=== PATIENT | male | born 1955 | race Caucasian/White ===

== ENCOUNTER → 2017-09-05 09:41 | Outpatient (CLI) | payer OTHER, SELFPAY ==
--- NOTE | 2017-09-05 09:44 | ECHOD_ITS ---
Reason For Study: CHEST PAIN Procedure This was a 2D Doppler, Color Flow transthoracic echocardiogram. Exam performed in department. Left Ventricle Normal size and thickness. The estimated ejection fraction is 60 %. Stage 1 diastolic dysfunction. No regional wall motion abnormalities noted. Right Ventricle Normal size and thickness. Normal systolic function. Atria Normal left atrium. Normal right atrium. Normal atrial septum. Mitral Valve The mitral valve is structurally normal. No prolapse or stenosis seen. Tricuspid Valve Normal tricuspid valve. Trivial tricuspid valve insufficiency. Right ventricular systolic pressure estimated to be 17 mmHg. Aortic Valve Trisinus/trileaflet aortic valve. Mild diffuse aortic valve thickening. Pulmonic Valve Normal pulmonic valve. Great Vessels Normal aortic root. Normal arch. Normal inferior vena cava. Inferior vena cava collapse with sniff. Pericardium/Pleural No pericardial effusion. MMode/2D Measurements & Calculations LVIDd: 4.3 cm IVSd: 0.80 cm Ao root diam: 3.8 cm LVIDs: 2.6 cm LVPWd: 0.85 cm LA dimension: 2.7 cm RVDd: 3.1 cm FS: 39.6 % LAV(MOD-bp): 52.4 ml EDV(MOD-sp4): 115.0 ml EDV(MOD-sp2): 102.6 ml LAV(MOD-bp) Indexed: 23.6 ml/m2 ESV(MOD-sp4): 46.6 ml EF(MOD-sp2): 54.6 % LAV(MOD-sp2): 80.8 ml EF(MOD-sp4): 59.5 % LAV(MOD-sp4): 30.4 ml SV(MOD-sp4): 68.5 ml SV(MOD-sp2): 56.0 ml LA A4 area: 13.4 cm2 RA A4 area: 11.5 cm2 Doppler Measurements & Calculations MV E max marjan: 60.4 cm/sec MV V2 max: 83.5 cm/sec Ao V2 max: 152.9 cm/sec MV A max marjan: 80.4 cm/sec MV max P.8 mmHg Ao max P.4 mmHg MV E/A: 0.75 MV V2 mean: 49.1 cm/sec MV mean P.1 mmHg MV V2 VTI: 23.8 cm LV V1 max: 106.6 cm/sec PA V2 max: 100.0 cm/sec TR max marjan: 175.1 cm/sec LV V1 max P.5 mmHg TR max P.3 mmHg Interpretation Summary The estimated ejection fraction is 60 %. Stage 1 diastolic dysfunction. Trivial tricuspid valve insufficiency. Right ventricular systolic pressure estimated to be 17 mmHg. Compared to echo report dated 05/08/2015, no appreciable changes noted. Ordering Physician: Jonn Luis Referring Physician: ROBERT CORCORAN Performed By: Cherelle Atkins RDCS, RVT
== END ==
PROVIDERS: Family Provider Family Medicine Geriatric Medicine; PCP Family Medicine Geriatric Medicine; Visit Provider Internal Medicine Cardiovascular Disease
DX: I10 Essential (primary) hypertension (principal); E78.5 Hyperlipidemia, unspecified; R07.9 Chest pain, unspecified
CPT/HCPCS: 93306

== ENCOUNTER → 2017-09-20 10:21 | Outpatient (CLI) | payer OTHER, SELFPAY ==
--- NOTE | 2017-09-20 10:22 | STE_ITS ---
Reason For Study: Chest Pain Stress Results Protocol: Jorge Protocol Maximum Predicted HR: 157 bpm Target HR: 133 bpm% Max imum Predicted HR: 106 % DurationHeart Rate Stage (mm:ss) (bpm) BPCom ment Baseline 69 134/88 No Chest Pain Jorge Protocol Stage I 3:00 13 4 130/76No Chest Pain Jorge Protocol Stage II 3:00 15 1 140/70No Chest Pain Jorge Protocol Stage III 3:00 16 6 178/72No Chest Pain, Mild Dyspnea Recovery 98 146/88 No Chest Pain Stress Duration: 9:00 mm:ss Maximum Stress HR: 166 bpmM ETS: 10 Baseline Echocardiogram Findings The estimated ejection fraction is 65 %. Stress Echo Wall motion Data Resting WMIntermediate WMStress WM Resting Wall Motion Wall Motion Stress No regional wall motion No regional wall motion abnormalities noted. abnormalities noted. EKG Data Normal intervals are noted. The patient exercised according to the regular Jorge protocol for a total duration of 9:00. The maximum heart rate attained was 166 beats per minute. This was 105% of maximum predicted heart rate. The patient exercised into stage 4 of the Jorge protocol. During stress, there were no ST or T wave changes noted to suggest ischemia. No arrhythmias noted. No clinical angina was noted. Interpretation Summary The estimated ejection fraction is 65 %. Normal adequate treadmill echocardiogram. Negative for ischemia by EKG and echocardiographic criteria. No anginal symptoms noted. No arrhythmias noted. Appropriate blood pressure response to exercise. Average exercise capacity for age. Test terminated due to toe drop. Final LVEF is 75%. Ordering Physician: Jonn Luis Referring Physician: Jonn Luis Performed By: Nurys Longoria RDCS
== END ==
PROVIDERS: Family Provider Family Medicine Geriatric Medicine; PCP Family Medicine Geriatric Medicine; Visit Provider Internal Medicine Cardiovascular Disease
DX: R07.9 Chest pain, unspecified (principal)
CPT/HCPCS: 93017; 93350